=== PATIENT | female | born 2000 | race African-American/Black ===

== ENCOUNTER 2024-01-20 08:37 | Observation (INO) | payer OTHER ==
[~2024-01-20] VITALS: Ht 170.2 cm; Wt 90.7 kg
[2024-01-20] VITALS (7 sets, daily range): BP systolic 107–112; BP diastolic 62–71; TEMP 94.3–97.5; O2SAT 93–98
[~2024-01-20 08:37] MED LIST: ERGO500029 PO; LEVO88TA3 PO
[2024-01-20] MEDS ORDERED: LIDOCAINE 2% 100MG/5ML SDV (FOR ANES.) As Ordered ONE (10:24)
[2024-01-20] MEDS ORDERED: ONDANSETRON 4MG 2ML VIAL As Ordered ONE (10:24)
[2024-01-20] MEDS ORDERED: ROCURONIUM BROMIDE 50MG/5ML VIAL As Ordered ONE (10:24)
[2024-01-20] MEDS ORDERED: propofoL 200 MG/20 ML VIAL As Ordered ONE (10:24)
[2024-01-20] MEDS ORDERED: MIDAZOLAM INJ 2MG/2ML VIAL As Ordered ONE (10:25)
[2024-01-20] MEDS ORDERED: fentaNYL 250 MCG/5 ML INJECTION As Ordered ONE (10:25)
[2024-01-20] MEDS ORDERED: SUGAMMADEX SODIUM 500 MG/5 ML VIAL (BRIDION) As Ordered ONE (10:31)
[2024-01-20] MEDS ORDERED: dexmedeTOMIDine (4MCG/ML)200MCG/50ML BTL (PRECEDEX) As Ordered ONE (10:31)
[2024-01-20] MEDS: ceFAZolin SOD 2 GM in IV 1 EA IV ONE (12:07)
[2024-01-20] MEDS: HEPARIN SOD (PORCINE) 5000UNITS/ML 1ML VIAL/SYRINGE SQ ONE (12:20)
[2024-01-20] MEDS: GENTAMICIN SULF 80MG/2ML VIAL As Ordered ONE (12:41)
[2024-01-20] MEDS ORDERED: ACETAMINOPHEN 1000MG/100ML IV BAG As Ordered ONE (13:20)
[2024-01-20] MEDS ORDERED: ePHEDrine SULFATE 25 MG/5 ML(5MG/ML) SYRINGE As Ordered ONE (13:20)
[2024-01-20] MEDS ORDERED: HYDROmorphone HCL 2MG/ML 1ML VIAL As Ordered ONE (13:23)
[2024-01-20] MEDS ORDERED: oxyCODONE 5MG TAB PO PRN (15:40)
[2024-01-20] MEDS ORDERED: fentaNYL 100 MCG/2 ML INJECTION IV PRN (15:40)
[2024-01-20] MEDS ORDERED: ONDANSETRON 4MG 2ML VIAL IV PRN ×2 (15:40→15:50)
[2024-01-20] MEDS ORDERED: ACETAMINOPHEN 325 MG TAB PO PRN (15:50)
[2024-01-20] MEDS: ceFAZolin 2 GM/D5W 50 ML IV BAG As Ordered ONE (16:07)
[2024-01-20] MEDS: HYDROMORPHONE HCL 0.5 MG/ 0.5 ML SYRINGE IV PRN (17:05)
[2024-01-20] MEDS: LR 1,000 ML IV SCH (17:20)
[2024-01-20] MEDS: NS 1,000 ML IV SCH ×2 (17:46)
[2024-01-20] MEDS: ceFAZolin SOD 2 GM in IV 1 EA IV SCH (19:56)
[2024-01-20] MEDS: PERCOCET 5MG/325MG TAB PO PRN (22:05)
[2024-01-21 00:30] VITALS: BP 108/65; TEMP 97.7; O2SAT 95
[2024-01-21 04:00] VITALS: BP 112/66; TEMP 97.7; O2SAT 95
[2024-01-21] MEDS: LEVOTHYROXINE 88MCG TABLET (0.088 MG) PO SCH (05:09)
[2024-01-21 08:00] VITALS: BP 104/63; TEMP 98.1; O2SAT 98
[2024-01-21] MEDS: traMADol 50 MG TAB PO PRN (09:03)
[2024-01-21] MEDS ORDERED: HOME MED LIST COMPLETE! XX SCH (10:05)
[2024-01-21 12:00] VITALS: BP 103/59; TEMP 98.1; O2SAT 96
[2024-01-21] MEDS ORDERED: PERCOCET PO (12:10)
== END 2024-01-21 14:50 | disposition home or self-care (01) ==
LOC: M SDC 08:37 → M RR INP 15:50 → M MS5PR 17:45
PROVIDERS: ADMIT Plastic Surgery Surgery of the Hand; ATTEND Plastic Surgery Surgery of the Hand
DX: N62 Hypertrophy of breast (principal); Z85.22 Personal history of malignant neoplasm of nasal cavities, middle ear, and accessory sinuses; Z92.21 Personal history of antineoplastic chemotherapy; Z92.3 Personal history of irradiation; Z79.899 Other long term (current) drug therapy
CPT/HCPCS: 19318; 81025; 88305; 96365; 96366; C9290; C9733; J0131; J0665; J0690; J1100; J1171; J1580; J2250; J2405; J3010